=== PATIENT | female | born 1950 | race Caucasian/White ===

== ENCOUNTER 2021-06-14 13:24 | Outpatient (CLI) | payer MEDICARE | END 2021-06-14 13:25 | disposition home or self-care (01) | LOC: BICMAMMO 13:24 | PROVIDERS: ATTEND Specialist | DX: M81.0 Age-related osteoporosis without current pathological fracture (principal); M85.89 Other specified disorders of bone density and structure, multiple sites; Z85.3 Personal history of malignant neoplasm of breast | CPT/HCPCS: 77066; 77080; G0279 ==

== ENCOUNTER 2022-03-03 07:13 | Inpatient (IN) | payer MEDICARE, OTHER ==
[2022-03-03 08:52] LABS: #Basophils 0.2 thou/uL (0.0-0.2); #Lymphocytes 0.3 thou/uL (1.20-3.40); #Monocytes 0.8 thou/uL (0.11-0.59); #Neutrophils 7.3 thou/uL (1.40-6.50); %Basophils 1.9 % (0.0-1.0); %Eosinophils 0.4 % (0.0-10.0); %Lymphocytes 3.9 % (21.0-51.0); %Neutrophils 84.9 % (42.0-75.0); Hemoglobin 11.7 g/dL (12.0-16.0); Mean Corpuscular HGB CONC 34.6 g/dL (32.0-36.0); Mean Corpuscular Hemoglobin 33.1 pg (27.0-31.0); Mean Corpuscular Volume 95.8 fL (78.0-98.0); Mean Platelet Volume 9.9 fL (7.4-10.4); Platelet Count 141 thou/uL (130-400); RBC Distribution Width 11.8 % (11.5-14.5); Red Blood Cell (RBC) Count 3.53 mill/uL (4.20-5.40); White Blood Cell (WBC) Count 8.6 thou/uL (4.8-10.8)
[2022-03-03 09:11] LABS: ALT (SGPT) 11 U/L (8-55); AST (SGOT) 20 U/L (5-34); Albumin 3.7 g/dL (3.4-4.8); Alkaline Phosphatase 66 U/L (40-110); Anion Gap 15 mmol/L (10-20); BUN (Urea Nitrogen) 6 mg/dL (9.8-20.1); Bilirubin, Total 1.6 mg/dL (0.2-1.2); CK (CPK) 794 U/L (29-168); Calc. Creatinine Clearance 0 mL/min (70-130); Calcium 8.6 mg/dL (7.8-10.44); Carbon Dioxide 30 mmol/L (23-31); Chloride 97 mmol/L (98-107); Estimated GFR 92; Globulin 2.2 g/dL (2.4-3.5); Glucose 155 mg/dL (83-110); Protein, Total 5.9 g/dL (5.8-8.1); Sodium 139 mmol/L (136-145)
[2022-03-03 09:15] LABS: Potassium 2.9 mmol/L (3.5-5.1)
[2022-03-03 09:23] LABS: SARS-CoV-2 NAA Rapid Test Not Detected (NotDetected)
[2022-03-03] MEDS ORDERED: Potassium Chloride 20 MEQ TAB ONE (10:40)
[2022-03-03] MEDS ORDERED: Potassium Chloride 20 MEQ TAB PO ONE (11:40)
[2022-03-03] MEDS ORDERED: Ondansetron PF 4 MG/2 ML Vial IVP PRN (11:43)
[2022-03-03] MEDS ORDERED: Senokot S 8.6-50 MG TAB PO PRN (11:43)
[2022-03-03] MEDS ORDERED: Furosemide 20 MG/2 ML VIAL SLOW IVP SCH (12:00)
[2022-03-03] MEDS ORDERED: Albuterol Sulfate 2.5 mg/0.5 ml Neb NEB PRN (12:13)
[2022-03-03 12:15] LABS: Hemoglobin A1c 5.3 % (4.0-6.0)
[2022-03-03] MEDS ORDERED: Furosemide 20 MG/2 ML VIAL ONE (12:17)
[2022-03-03 12:23] LABS: Bilirubin Negative (Negative); Blood, Urine Negative (Negative); Clarity Clear (Clear); Glucose, Urine (Dipstick) Normal (Negative); Ketone, Urine 10 mg/dL (Negative); Leukocyte Negative Leu/uL (Negative); Nitrite Negative (Negative); Protein, Urine (Dipstick) Negative (Neg-Trace); Specific Gravity, Urine 1.005 (1.002-1.036); Urobilinogen Normal mg/dL (Less than 2)
[2022-03-03 12:25] LABS: Magnesium 1.7 mg/dL (1.6-2.6)
[2022-03-03 12:29] LABS: Troponin I 0.017 ng/mL (< 0.028)
[2022-03-03] MEDS ORDERED: HYDROcodone/Acetaminophen 10/325 mg Tablet ONE (12:42)
[2022-03-03 15:34] LABS: Potassium 3.1 mmol/L (3.5-5.1)
[2022-03-03] MEDS ORDERED: Potassium Chloride 20 MEQ TAB PO SCH (15:45)
[2022-03-03 15:46] LABS: Troponin I 0.013 ng/mL (< 0.028)
[2022-03-03] MEDS: Furosemide 20 MG/2 ML VIAL SLOW IVP SCH (15:56)
[2022-03-03 17:04] VITALS: BMI 30.6
[2022-03-03 17:27] LABS: Bilirubin Negative (Negative); Blood, Urine Negative (Negative); Clarity Clear (Clear); Glucose, Urine (Dipstick) Normal (Negative); Ketone, Urine Negative (Negative); Leukocyte Negative Leu/uL (Negative); Nitrite Negative (Negative); Protein, Urine (Dipstick) Negative (Neg-Trace); Specific Gravity, Urine 1.006 (1.002-1.036); Urobilinogen Normal mg/dL (Less than 2)
[2022-03-03 17:36] LABS: Bacteria/HPF None Seen HPF (None Seen); RBC/HPF None Seen HPF (0-3); Squamous Epithelial 0-3 HPF (0-3); Urine Culture Reflex No No; WBC/HPF 0-3 HPF (0-3)
[2022-03-03] MEDS: Acetaminophen 325 MG TAB PO PRN (18:04)
[2022-03-03] MEDS: Mirtazapine 30 MG Soltab PO SCH (20:55)
[2022-03-03] MEDS: Apixaban 5 MG TAB PO SCH (20:55)
[2022-03-03] MEDS: HYDROcodone/Acetaminophen 10/325 mg Tablet PO SCH (20:55)
[2022-03-03] MEDS ORDERED: Apixaban 5 MG TAB PO SCH (21:00)
[2022-03-04 05:37] LABS: Anion Gap 17 mmol/L (10-20); BUN (Urea Nitrogen) 6 mg/dL (9.8-20.1); CK (CPK) 570 U/L (29-168); Calc. Creatinine Clearance 94 mL/min (70-130); Carbon Dioxide 28 mmol/L (23-31); Chloride 100 mmol/L (98-107); Estimated GFR 93; Glucose 95 mg/dL (83-110); Potassium 3.4 mmol/L (3.5-5.1); Sodium 142 mmol/L (136-145)
[2022-03-04 06:36] LABS: Band 5 % (5-11); Eosinophils 3 % (0-10); Hemoglobin 12.5 g/dL (12.0-16.0); Lymphocytes 19 % (21-51); MDiff Complete? YES; Mean Corpuscular HGB CONC 33.1 g/dL (32.0-36.0); Mean Corpuscular Hemoglobin 32.7 pg (27.0-31.0); Mean Corpuscular Volume 98.8 fL (78.0-98.0); Mean Platelet Volume 9.6 fL (7.4-10.4); Monocytes 8 % (0-10); Neutrophil 65 % (42-75); Platelet Count 148 thou/uL (130-400); RBC Distribution Width 12.1 % (11.5-14.5); RBC Morphology Normal; Red Blood Cell (RBC) Count 3.83 mill/uL (4.20-5.40); White Blood Cell (WBC) Count 4.7 thou/uL (4.8-10.8)
[2022-03-04] MEDS: Acetaminophen 325 MG TAB PO PRN (06:41)
[2022-03-04] MEDS: Furosemide 20 MG/2 ML VIAL SLOW IVP SCH ×2 (06:42→15:39)
[2022-03-04] MEDS: Apixaban 5 MG TAB PO SCH ×2 (08:56→21:31)
[2022-03-04] MEDS: HYDROcodone/Acetaminophen 10/325 mg Tablet PO SCH ×3 (08:57→21:32)
[2022-03-04] MEDS: Nebivolol HCl 5 MG TAB PO SCH (08:57)
[2022-03-04] MEDS: Atorvastatin Calcium 20 MG TAB PO SCH (08:57)
[2022-03-04] MEDS: rOPINIRole HCl 1 MG TAB PO SCH (08:57)
[2022-03-04 12:57] LABS: Hemoglobin A1c 5.3 % (4.0-6.0)
[2022-03-04] MEDS: Ondansetron ODT 4 MG TAB PO PRN (13:11)
[2022-03-04] MEDS ORDERED: Potassium Chloride 20 MEQ TAB PO SCH (18:45)
[2022-03-04] MEDS: Mirtazapine 30 MG Soltab PO SCH (21:31)
[2022-03-05] MEDS: Acetaminophen 325 MG TAB PO PRN (03:17)
[2022-03-05 05:37] LABS: Hemoglobin 13.2 g/dL (12.0-16.0); Mean Corpuscular HGB CONC 34.3 g/dL (32.0-36.0); Mean Corpuscular Hemoglobin 32.8 pg (27.0-31.0); Mean Corpuscular Volume 95.7 fL (78.0-98.0); Mean Platelet Volume 8.8 fL (7.4-10.4); Platelet Count 198 thou/uL (130-400); RBC Distribution Width 12.1 % (11.5-14.5); Red Blood Cell (RBC) Count 4.02 mill/uL (4.20-5.40)
[2022-03-05 05:47] LABS: Anion Gap 15 mmol/L (10-20); BUN (Urea Nitrogen) 15 mg/dL (9.8-20.1); CK (CPK) 227 U/L (29-168); Calc. Creatinine Clearance 73 mL/min (70-130); Calcium 9.5 mg/dL (7.8-10.44); Carbon Dioxide 35 mmol/L (23-31); Cardiac Risk 4.4 (Less than 4.5); Chloride 95 mmol/L (98-107); Cholesterol 119 mg/dl (< 200 Desired); Estimated GFR 74; Glucose 130 mg/dL (83-110); HDL Cholesterol 27 mg/dL (>60 Neg Risk); LDL Cholesterol, Calculated 66 mg/dL; Sodium 142 mmol/L (136-145); Triglycerides 128 mg/dL (Less than 150)
[2022-03-05 06:27] LABS: Band 1 % (5-11); Eosinophils 3 % (0-10); Lymphocytes 20 % (21-51); MDiff Complete? YES; Monocytes 13 % (0-10); Neutrophil 62 % (42-75)
[2022-03-05] MEDS ORDERED: Gadobenate Dimeglumine 529 MG/1 ML (20ML VIAL) ONE (08:00)
[2022-03-05] MEDS: rOPINIRole HCl 1 MG TAB PO SCH (08:24)
[2022-03-05] MEDS: Furosemide 20 MG/2 ML VIAL SLOW IVP SCH ×2 (08:24→14:14)
[2022-03-05] MEDS: HYDROcodone/Acetaminophen 10/325 mg Tablet PO SCH ×3 (08:25→20:17)
[2022-03-05] MEDS: Nebivolol HCl 5 MG TAB PO SCH (08:26)
[2022-03-05] MEDS: Apixaban 5 MG TAB PO SCH ×2 (08:26→20:19)
[2022-03-05] MEDS: Atorvastatin Calcium 20 MG TAB PO SCH (08:31)
[2022-03-05] MEDS ORDERED: HYDROcodone/Acetaminophen 10/325 mg Tablet PO SCH (12:00)
[2022-03-05] MEDS: Potassium Chloride 20 MEQ TAB PO SCH (16:48)
[2022-03-05] MEDS: Melatonin 3 MG TAB PO SCH (17:52)
[2022-03-05] MEDS: Mirtazapine 30 MG Soltab PO SCH (20:19)
[2022-03-05] MEDS: Ondansetron ODT 4 MG TAB PO PRN (20:20)
[2022-03-06] MEDS: HYDROcodone/Acetaminophen 10/325 mg Tablet PO SCH ×4 (02:06→20:09)
[2022-03-06] MEDS: Ondansetron ODT 4 MG TAB PO PRN ×2 (02:07→17:02)
[2022-03-06 04:49] LABS: Anion Gap 16 mmol/L (10-20); BUN (Urea Nitrogen) 15 mg/dL (9.8-20.1); Calc. Creatinine Clearance 78 mL/min (70-130); Calcium 9.3 mg/dL (7.8-10.44); Carbon Dioxide 32 mmol/L (23-31); Chloride 96 mmol/L (98-107); Estimated GFR 81; Glucose 126 mg/dL (83-110); Potassium 3.4 mmol/L (3.5-5.1); Sodium 141 mmol/L (136-145)
[2022-03-06 05:15] LABS: Hemoglobin 13.4 g/dL (12.0-16.0); Mean Corpuscular HGB CONC 33.3 g/dL (32.0-36.0); Mean Corpuscular Hemoglobin 31.9 pg (27.0-31.0); Mean Corpuscular Volume 95.8 fL (78.0-98.0); Mean Platelet Volume 9.2 fL (7.4-10.4); Platelet Count 196 thou/uL (130-400); RBC Distribution Width 12.1 % (11.5-14.5); White Blood Cell (WBC) Count 5.7 thou/uL (4.8-10.8)
[2022-03-06 05:16] LABS: Band 1 % (5-11); Eosinophils 4 % (0-10); Lymphocytes 28 % (21-51); MDiff Complete? YES; Monocytes 12 % (0-10); Neutrophil 53 % (42-75)
[2022-03-06] MEDS: Furosemide 20 MG/2 ML VIAL SLOW IVP SCH ×2 (06:34→13:43)
[2022-03-06] MEDS: Atorvastatin Calcium 20 MG TAB PO SCH (08:00)
[2022-03-06] MEDS: rOPINIRole HCl 1 MG TAB PO SCH (08:01)
[2022-03-06] MEDS: Potassium Chloride 20 MEQ TAB PO SCH ×2 (08:02→16:05)
[2022-03-06] MEDS: Nebivolol HCl 5 MG TAB PO SCH (08:02)
[2022-03-06] MEDS: Apixaban 5 MG TAB PO SCH ×2 (08:08→20:10)
[2022-03-06] MEDS: Acetaminophen 325 MG TAB PO PRN ×2 (11:22→17:03)
[2022-03-06] MEDS: Melatonin 3 MG TAB PO SCH (20:09)
[2022-03-06] MEDS: Mirtazapine 30 MG Soltab PO SCH (20:11)
[2022-03-07] MEDS: HYDROcodone/Acetaminophen 10/325 mg Tablet PO SCH ×2 (02:10→08:09)
[2022-03-07] MEDS: Ondansetron ODT 4 MG TAB PO PRN (02:11)
[2022-03-07 05:57] LABS: Anion Gap 16 mmol/L (10-20); BUN (Urea Nitrogen) 20 mg/dL (9.8-20.1); CK (CPK) 47 U/L (29-168); Calc. Creatinine Clearance 63 mL/min (70-130); Calcium 10.1 mg/dL (7.8-10.44); Carbon Dioxide 33 mmol/L (23-31); Chloride 96 mmol/L (98-107); Estimated GFR 76; Glucose 131 mg/dL (83-110); Potassium 3.2 mmol/L (3.5-5.1); Sodium 142 mmol/L (136-145)
[2022-03-07] MEDS: Furosemide 20 MG/2 ML VIAL SLOW IVP SCH (06:01)
[2022-03-07] MEDS: Acetaminophen 325 MG TAB PO PRN (06:02)
[2022-03-07] MEDS: Nebivolol HCl 5 MG TAB PO SCH (08:10)
[2022-03-07] MEDS: Atorvastatin Calcium 20 MG TAB PO SCH (08:10)
[2022-03-07] MEDS: rOPINIRole HCl 1 MG TAB PO SCH (08:10)
[2022-03-07] MEDS: Apixaban 5 MG TAB PO SCH (08:10)
[2022-03-07] MEDS: Potassium Chloride 20 MEQ TAB PO SCH (08:10)
[2022-03-07 08:20] VITALS: BP 111/62; TEMP 98.5
== END 2022-03-07 10:32 | disposition home or self-care (01) | DRG 291 ==
LOC: ERS 07:13 → 2SW 11:32 → OBSVTOIN 03-05 15:21
PROVIDERS: ADMIT Hospitalist; ATTEND Internal Medicine
DX: I11.0 Hypertensive heart disease with heart failure (principal); J96.01 Acute respiratory failure with hypoxia; I50.33 Acute on chronic diastolic (congestive) heart failure; I48.20 Chronic atrial fibrillation, unspecified; Z20.822 Contact with and (suspected) exposure to COVID-19; E78.5 Hyperlipidemia, unspecified; C50.912 Malignant neoplasm of unspecified site of left female breast; F03.90 Unspecified dementia, unspecified severity, without behavioral disturbance, psychotic disturbance, mood disturbance, and anxiety; E87.6 Hypokalemia; E11.65 Type 2 diabetes mellitus with hyperglycemia; D64.9 Anemia, unspecified; R29.6 Repeated falls; F32.A Depression, unspecified; F41.9 Anxiety disorder, unspecified; E86.0 Dehydration; T79.6XXA Traumatic ischemia of muscle, initial encounter; W18.30XA Fall on same level, unspecified, initial encounter; Z79.01 Long term (current) use of anticoagulants; Z86.73 Personal history of transient ischemic attack (TIA), and cerebral infarction without residual deficits; Z88.5 Allergy status to narcotic agent; Z88.0 Allergy status to penicillin; Z88.2 Allergy status to sulfonamides; Z88.8 Allergy status to other drugs, medicaments and biological substances; Z79.899 Other long term (current) drug therapy; Z90.49 Acquired absence of other specified parts of digestive tract; Z90.710 Acquired absence of both cervix and uterus
CPT/HCPCS: 36415; 70450; 70551; 71045; 72050; 72141; 80048; 80053; 80061; 81003; 82550; 83036; 83605; 83735; 83880; 84443; 84484; 85025; 87040; 87086; 93005; 93306; 94760; 96361; 96374; 96375; 96376; 97139; A9577; G0378; J1940; J2405; Q0162

== ENCOUNTER 2022-10-26 10:51 | Observation (INO) | payer MEDICARE, OTHER ==
[2022-10-26 11:30] LABS: #Eosinphils 0.1 thou/uL (0.0-0.7); #Lymphocytes 0.5 thou/uL (1.20-3.40); #Monocytes 0.5 thou/uL (0.11-0.59); #Neutrophils 4.2 thou/uL (1.40-6.50); %Eosinophils 1.6 % (0.0-10.0); %Lymphocytes 9.5 % (21.0-51.0); %Monocytes 9.8 % (0.0-10.0); %Neutrophils 79.1 % (42.0-75.0); Hemoglobin 11.5 g/dL (12.0-16.0); Mean Corpuscular HGB CONC 32.5 g/dL (32.0-36.0); Mean Platelet Volume 8.8 fL (7.4-10.4); Platelet Count 175 10x3/uL (130-400); RBC Distribution Width 13.8 % (11.5-14.5); Red Blood Cell (RBC) Count 3.49 mill/uL (4.20-5.40); White Blood Cell (WBC) Count 5.3 10x3/uL (4.8-10.8)
[2022-10-26 11:39] LABS: Chloride 103 mmol/L (98-107); Potassium 3.6 mmol/L (3.5-5.1); Sodium 143 mmol/L (136-145)
[2022-10-26 11:40] LABS: Calcium 8.9 mg/dL (7.8-10.44)
[2022-10-26 11:41] LABS: Globulin 2.2 g/dL (2.4-3.5); Glucose 105 mg/dL (83-110); Protein, Total 6.2 g/dL (5.8-8.1)
[2022-10-26 11:42] LABS: Anion Gap 13 mmol/L (10-20); Bilirubin, Total 1.2 mg/dL (0.2-1.2); Carbon Dioxide 31 mmol/L (23-31)
[2022-10-26 11:43] LABS: Alkaline Phosphatase 61 U/L (40-110)
[2022-10-26 11:44] LABS: Calc. Creatinine Clearance 0 mL/min (70-130); Estimated GFR 79; INR-International Normal Ratio 1.3; PTT 28.5 sec (22.9-36.1); Prothrombin Time 16.9 sec (12.0-14.7)
[2022-10-26 11:45] LABS: BUN (Urea Nitrogen) 12 mg/dL (9.8-20.1)
[2022-10-26 11:46] LABS: ALT (SGPT) 8 U/L (8-55); AST (SGOT) 12 U/L (5-34)
[2022-10-26 11:47] LABS: Lipase 17 U/L (8-78)
[2022-10-26] MEDS ORDERED: Ondansetron PF 4 MG/2 ML Vial IVP PRN (13:25)
[2022-10-26] MEDS ORDERED: Calcium Carbonate 500 MG ChewTAB PO PRN (13:25)
[2022-10-26] MEDS ORDERED: Senokot S 8.6-50 MG TAB PO PRN (13:25)
[2022-10-26] MEDS ORDERED: HYDROcodone/Acetaminophen 5/325 mg Tablet PO PRN (14:31)
[2022-10-26] MEDS ORDERED: Mag-Al Plus 1200 MG/1200 MG/120 MG/30 ML UDCUP PO PRN (14:33)
[2022-10-26 14:42] VITALS: BMI 27.5
[2022-10-26 15:07] LABS: Troponin I 0.011 ng/mL (< 0.028)
[2022-10-26] MEDS ORDERED: Benzonatate 100 MG CAP PO PRN (15:08)
[2022-10-26 15:59] LABS: SARS-CoV-2 NAA Rapid Test Not Detected (NotDetected)
[2022-10-26 17:58] LABS: Troponin I Less than 0.010 ng/mL (< 0.028)
[2022-10-26] MEDS ORDERED: Mirtazapine 30 MG Soltab PO SCH (21:00)
[2022-10-26] MEDS: Apixaban 5 MG TAB PO SCH (21:59)
[2022-10-26] MEDS: Mirtazapine 15 MG Soltab PO SCH (21:59)
[2022-10-26] MEDS: rOPINIRole HCl 2 MG TAB PO SCH (22:00)
[2022-10-26] MEDS: Acetaminophen 325 MG TAB PO PRN (22:02)
[2022-10-27 05:23] LABS: #Eosinphils 0.1 thou/uL (0.0-0.7); #Lymphocytes 0.4 thou/uL (1.20-3.40); #Monocytes 0.4 thou/uL (0.11-0.59); %Eosinophils 2.9 % (0.0-10.0); %Lymphocytes 10.2 % (21.0-51.0); %Monocytes 10.2 % (0.0-10.0); %Neutrophils 76.7 % (42.0-75.0); Hemoglobin 10.7 g/dL (12.0-16.0); Mean Corpuscular HGB CONC 32.7 g/dL (32.0-36.0); Mean Corpuscular Hemoglobin 32.9 pg (27.0-31.0); Mean Platelet Volume 8.9 fL (7.4-10.4); Platelet Count 163 10x3/uL (130-400); RBC Distribution Width 13.4 % (11.5-14.5); Red Blood Cell (RBC) Count 3.26 mill/uL (4.20-5.40)
[2022-10-27 05:42] LABS: Hemoglobin A1c 4.8 % (4.0-6.0)
[2022-10-27 05:54] LABS: ALT (SGPT) 9 U/L (8-55); AST (SGOT) 21 U/L (5-34); Albumin 3.4 g/dL (3.4-4.8); Alkaline Phosphatase 53 U/L (40-110); Anion Gap 14 mmol/L (10-20); BUN (Urea Nitrogen) 11 mg/dL (9.8-20.1); Bilirubin, Total 1.1 mg/dL (0.2-1.2); Calc. Creatinine Clearance 90 mL/min (70-130); Calcium 8.5 mg/dL (7.8-10.44); Carbon Dioxide 29 mmol/L (23-31); Cardiac Risk 2.3 (Less than 4.5); Chloride 102 mmol/L (98-107); Cholesterol 106 mg/dl (< 200 Desired); Estimated GFR 93; Globulin 2.5 g/dL (2.4-3.5); Glucose 107 mg/dL (83-110); HDL Cholesterol 47 mg/dL (>60 Neg Risk); Potassium 3.6 mmol/L (3.5-5.1); Protein, Total 5.9 g/dL (5.8-8.1); Sodium 141 mmol/L (136-145)
[2022-10-27] MEDS: Acetaminophen 325 MG TAB PO PRN ×2 (06:06→20:25)
[2022-10-27 06:16] LABS: Triglycerides 123 mg/dL (Less than 150)
[2022-10-27 06:24] LABS: LDL Cholesterol, Calculated 34 mg/dL
[2022-10-27] MEDS ORDERED: Potassium Chloride 20 MEQ TAB PO SCH (08:00)
[2022-10-27] MEDS: Apixaban 5 MG TAB PO SCH ×2 (08:13→20:27)
[2022-10-27] MEDS: Atorvastatin Calcium 20 MG TAB PO SCH (08:13)
[2022-10-27] MEDS: Furosemide 20 MG TAB PO SCH (08:13)
[2022-10-27] MEDS: Aspirin 81 mg Enteric Coated Tablet PO SCH (08:13)
[2022-10-27] MEDS ORDERED: Nebivolol HCl 5 MG TAB PO SCH (09:00)
[2022-10-27] MEDS ORDERED: Furosemide 20 MG/2 ML VIAL SLOW IVP SCH (14:00)
[2022-10-27] MEDS: Mirtazapine 15 MG Soltab PO SCH (20:26)
[2022-10-27] MEDS: rOPINIRole HCl 2 MG TAB PO SCH (20:26)
[2022-10-27] MEDS ORDERED: diphenhydrAMINE 50 MG CAP PO SCH (21:00)
[2022-10-28 05:22] LABS: Anion Gap 10 mmol/L (10-20); BUN (Urea Nitrogen) 11 mg/dL (9.8-20.1); Calc. Creatinine Clearance 82 mL/min (70-130); Calcium 8.8 mg/dL (7.8-10.44); Carbon Dioxide 33 mmol/L (23-31); Chloride 100 mmol/L (98-107); Estimated GFR 91; Glucose 104 mg/dL (83-110); Magnesium 1.9 mg/dL (1.6-2.6); Potassium 3.5 mmol/L (3.5-5.1); Sodium 139 mmol/L (136-145)
[2022-10-28] MEDS ORDERED: Regadenoson 0.4 MG/5 ML SYRINGE ONE (08:23)
[2022-10-28] MEDS ORDERED: Potassium Chloride 20 MEQ TAB PO SCH (08:45)
[2022-10-28] MEDS: Atorvastatin Calcium 20 MG TAB PO SCH (09:05)
[2022-10-28] MEDS: Aspirin 81 mg Enteric Coated Tablet PO SCH (09:05)
[2022-10-28] MEDS: Furosemide 20 MG TAB PO SCH (09:05)
[2022-10-28] MEDS: Apixaban 5 MG TAB PO SCH (09:10)
[2022-10-28 09:19] VITALS: BP 136/67; TEMP 97.9
[2022-10-28] MEDS: Acetaminophen 325 MG TAB PO PRN (11:05)
== END 2022-10-28 12:03 | disposition home or self-care (01) ==
LOC: SUATTDRO 10:51 → ERS 10:51 → 2SW 12:46
PROVIDERS: ADMIT Internal Medicine; ATTEND Internal Medicine
DX: R06.09 Other forms of dyspnea (principal); R07.89 Other chest pain; I48.91 Unspecified atrial fibrillation; R10.11 Right upper quadrant pain; I11.0 Hypertensive heart disease with heart failure; I50.9 Heart failure, unspecified; E78.5 Hyperlipidemia, unspecified; F12.10 Cannabis abuse, uncomplicated; Z85.3 Personal history of malignant neoplasm of breast; Z85.42 Personal history of malignant neoplasm of other parts of uterus; Z86.73 Personal history of transient ischemic attack (TIA), and cerebral infarction without residual deficits; Z79.01 Long term (current) use of anticoagulants; Z79.899 Other long term (current) drug therapy; Z88.0 Allergy status to penicillin; Z88.2 Allergy status to sulfonamides; Z88.5 Allergy status to narcotic agent; Z88.6 Allergy status to analgesic agent; Z20.822 Contact with and (suspected) exposure to COVID-19
CPT/HCPCS: 36415; 71045; 76705; 78452; 80048; 80053; 80061; 83036; 83690; 83735; 83880; 84484; 85025; 85610; 85730; 93005; 93017; 96374; A9500; G0378; J1940; J2785; U0002

== ENCOUNTER 2023-01-09 21:08 | Emergency (ER) | payer OTHER ==
[2023-01-09] MEDS ORDERED: Ondansetron ODT 4 MG TAB ONE (21:23)
[2023-01-09 21:57] LABS: #Monocytes 0.4 thou/uL (0.11-0.59); #Neutrophils 4.7 thou/uL (1.40-6.50); %Basophils 0.8 % (0.0-1.0); %Eosinophils 0.2 % (0.0-10.0); %Lymphocytes 3.8 % (21.0-51.0); %Neutrophils 87.8 % (42.0-75.0); Hemoglobin 11.1 g/dL (12.0-16.0); Mean Corpuscular Hemoglobin 29.7 pg (27.0-31.0); Mean Corpuscular Volume 92.8 fl (78.0-98.0); Platelet Count 265 10x3/uL (130-400); RBC Distribution Width 14.6 % (11.5-14.5); Red Blood Cell (RBC) Count 3.74 mill/uL (4.20-5.40); White Blood Cell (WBC) Count 5.3 10x3/uL (4.8-10.8)
[2023-01-09 22:24] LABS: ALT (SGPT) 12 U/L (8-55); AST (SGOT) 15 U/L (5-34); Albumin 3.9 g/dL (3.4-4.8); Alkaline Phosphatase 91 U/L (40-110); Anion Gap 19 mmol/L (10-20); BUN (Urea Nitrogen) 9 mg/dL (9.8-20.1); Bilirubin, Total 0.8 mg/dL (0.2-1.2); Calc. Creatinine Clearance 0 mL/min (70-130); Calcium 8.7 mg/dL (7.8-10.44); Carbon Dioxide 22 mmol/L (23-31); Chloride 97 mmol/L (98-107); Estimated GFR 73; Globulin 2.5 g/dL (2.4-3.5); Glucose 179 mg/dL (83-110); Protein, Total 6.4 g/dL (5.8-8.1); Sodium 135 mmol/L (136-145)
[2023-01-09 22:41] LABS: Potassium 2.5 mmol/L (3.5-5.1)
[2023-01-09] MEDS ORDERED: Potassium Chloride 20 MEQ TAB ONE (23:38)
[2023-01-10 00:06] LABS: Bilirubin Negative (Negative); Blood, Urine Negative (Negative); Clarity Clear (Clear); Glucose, Urine (Dipstick) Normal (Negative); Ketone, Urine 20 mg/dL (Negative); Leukocyte Negative Leu/uL (Negative); Nitrite Negative (Negative); Protein, Urine (Dipstick) Negative (Neg-Trace); Specific Gravity, Urine 1.015 (1.002-1.036); Urobilinogen Normal mg/dL (Less than 2)
[2023-01-10] MEDS ORDERED: Ondansetron ODT 4 MG TAB ONE (00:08)
[2023-01-10] MEDS ORDERED: Ondansetron PF 4 MG/2 ML Vial ONE (00:08)
== END 2023-01-10 00:24 | disposition home or self-care (01) ==
LOC: ERS 21:08
DX: R06.02 Shortness of breath (principal); F43.0 Acute stress reaction; Z87.891 Personal history of nicotine dependence; Z79.01 Long term (current) use of anticoagulants; Z79.899 Other long term (current) drug therapy
CPT/HCPCS: 71045; 80053; 81003; 84484; 85025; 87086; 93005; 94760; J2405; Q0162

== ENCOUNTER 2023-01-10 03:15 | Inpatient (IN) | payer MEDICARE, OTHER ==
[2023-01-10] MEDS ORDERED: Tenecteplase 50 MG ONE (03:17)
[2023-01-10] MEDS ORDERED: EPINEPHrine 1 MG/10 ML Abboject SYRINGE ONE ×2 (03:17→05:55)
[2023-01-10] MEDS ORDERED: Calcium Chloride 1 GM/10 ML Abboject SYRINGE ONE (03:17)
[2023-01-10] MEDS ORDERED: Sodium Bicarb 50 MEQ/50 ML Abboject 8.4% SYRINGE ONE ×2 (03:17→05:55)
[2023-01-10] MEDS ORDERED: NOREPINEPHRINE 8 MG/250 ML-D5W 250 ML ONE (03:36)
[2023-01-10] MEDS ORDERED: Magnesium 2 GM/50 ML BAG (IN WATER) ONE (03:58)
[2023-01-10] MEDS ORDERED: Procainamide 2,000 MG in Sodium Chloride 0.9% 500 ML IVPB SCH (04:00)
[2023-01-10 04:01] LABS: Analyzer IN Cardio ER; Base Excess (BEa) -14.6 mEq/L (-2.0 to +3.0); Calcium, Ionized (arterial) 1.35 mmol/L (1.12-1.30); Hematocrit-ABG 36 % (36.0-47.0); Hemoglobin (Hb) 12.4 g/dL (12.0-16.0); Potassium - ABG Lab 3.37 mmol/L (3.70-5.30); pH, Arterial 7.131 (7.35-7.45)
[2023-01-10 04:02] LABS: Puncture Site LFA
[2023-01-10 04:16] LABS: Hemoglobin 11.3 g/dL (12.0-16.0); Mean Corpuscular HGB CONC 28.7 g/dL (32.0-36.0); Mean Corpuscular Hemoglobin 30.2 pg (27.0-31.0); Mean Platelet Volume 11.3 fL (7.4-10.4); Platelet Count 259 10x3/uL (130-400); Red Blood Cell (RBC) Count 3.74 mill/uL (4.20-5.40); White Blood Cell (WBC) Count 6.5 10x3/uL (4.8-10.8)
[2023-01-10 04:22] LABS: Delete Auto Diff?? YES; Manual Diff?? YES; Mean Corpuscular Volume 105.3 fl (78.0-98.0)
[2023-01-10 04:58] LABS: Anisocytosis SLIGHT = 6-15 cells HPF (0-5); Band 4 % (5-11); Burr Cells SLIGHT = 2-5 cells HPF (0-1); Hypochromia SLIGHT = 6-15 cells HPF (0-5); Large Platelets 3.1 % (0-5); Lymphocytes 5 % (21-51); Macrocytosis SLIGHT = 6-15 cells HPF (0-5); Metamyelocyte 2 % (0-0); Monocytes 6 % (0-10); Myelocyte 2 % (0-0); Neutrophil 81 % (42-75); Ovalocytes SLIGHT = 2-5 cells HPF (0-1); Platelet Morphology Comment Platelets Normal; Polychromasia SLIGHT = 2-3 cells HPF (0-2); Target Cells SLIGHT = 2-5 cells HPF (0-1); Tear Drops SLIGHT = 2-5 cells HPF (0-1); Total Cell Count 98
[2023-01-10] MEDS ORDERED: Ondansetron PF 4 MG/2 ML Vial IVP PRN (05:00)
[2023-01-10] MEDS ORDERED: Acetaminophen 650 MG Suppository PR PRN (05:00)
[2023-01-10] MEDS ORDERED: Electrolyte Replacement Protocol 1 EACH IVPB PRN (05:02)
[2023-01-10] MEDS ORDERED: NOREPINEPHRINE 8 MG/250 ML-D5W 250 ML IVPB PRN (05:02)
[2023-01-10 05:28] LABS: ALT (SGPT) 24 U/L (8-55); AST (SGOT) 54 U/L (5-34); Albumin 3.5 g/dL (3.4-4.8); Alkaline Phosphatase 97 U/L (40-110); Anion Gap 27 mmol/L (10-20); BUN (Urea Nitrogen) 9 mg/dL (9.8-20.1); Bilirubin, Total 0.7 mg/dL (0.2-1.2); Calc. Creatinine Clearance 0 mL/min (70-130); Calcium 8.3 mg/dL (7.8-10.44); Carbon Dioxide 11 mmol/L (23-31); Chloride 101 mmol/L (98-107); Estimated GFR 69; Globulin 2.2 g/dL (2.4-3.5); Glucose 262 mg/dL (83-110); Potassium 3.8 mmol/L (3.5-5.1); Protein, Total 5.7 g/dL (5.8-8.1); Sodium 135 mmol/L (136-145)
[2023-01-10 05:37] VITALS: BP 82/51
[2023-01-10] MEDS ORDERED: Sodium Bicarb 50 MEQ/50 ML VIAL ONE (05:50)
[2023-01-10 06:12] VITALS: BMI 26.6
[2023-01-10] MEDS ORDERED: Amiodarone 450 MG in Dextrose 5% in Water 250 ML IVPB SCH (06:15)
[2023-01-10] MEDS ORDERED: Sodium Bicarbonate 150 MEQ in Dextrose 5% in Water 1,000 ML IV SCH (06:15)
[2023-01-10 07:04] VITALS: TEMP 98.2
[2023-01-10] MEDS ORDERED: Magnesium 2 GM/50 ML(in water) 2 GM in Premix Bag 1 BAG IVPB SCH (08:00)
[2023-01-10] MEDS ORDERED: Pantoprazole 40 MG VIAL IVP SCH (09:00)
== END 2023-01-10 09:52 | disposition expired | DRG 208 ==
LOC: ERS 03:15 → CCU 04:27
PROVIDERS: ADMIT Student in an Organized Health Care Education/Training Program; ATTEND Student in an Organized Health Care Education/Training Program
PROC: 3E03317 Introduction of Other Thrombolytic into Peripheral Vein, Percutaneous Approach (ICD-10-PCS; principal; 2023-01-10)
PROC: 5A1935Z Respiratory Ventilation, Less than 24 Consecutive Hours (ICD-10-PCS; 2023-01-10)
PROC: 3E033XZ Introduction of Vasopressor into Peripheral Vein, Percutaneous Approach (ICD-10-PCS; 2023-01-10)
PROC: 5A2204Z Restoration of Cardiac Rhythm, Single (ICD-10-PCS; 2023-01-10)
PROC: 0D9670Z Drainage of Stomach with Drainage Device, Via Natural or Artificial Opening (ICD-10-PCS; 2023-01-10)
PROC: 5A12012 Performance of Cardiac Output, Single, Manual (ICD-10-PCS; 2023-01-10)
DX: I26.99 Other pulmonary embolism without acute cor pulmonale (principal); I21.9 Acute myocardial infarction, unspecified; J96.01 Acute respiratory failure with hypoxia; J81.0 Acute pulmonary edema; I47.20 Ventricular tachycardia, unspecified; G93.1 Anoxic brain damage, not elsewhere classified; J95.88 Other intraoperative complications of respiratory system, not elsewhere classified; E87.20 Acidosis, unspecified; Z66 Do not resuscitate; E78.5 Hyperlipidemia, unspecified; G89.29 Other chronic pain; F41.9 Anxiety disorder, unspecified; G43.909 Migraine, unspecified, not intractable, without status migrainosus; G47.00 Insomnia, unspecified; R57.8 Other shock; I49.01 Ventricular fibrillation; D64.9 Anemia, unspecified; I48.91 Unspecified atrial fibrillation; I46.2 Cardiac arrest due to underlying cardiac condition; I46.8 Cardiac arrest due to other underlying condition; Y84.8 Other medical procedures as the cause of abnormal reaction of the patient, or of later complication, without mention of misadventure at the time of the procedure; F43.0 Acute stress reaction; Z79.01 Long term (current) use of anticoagulants; Z90.49 Acquired absence of other specified parts of digestive tract; Z90.710 Acquired absence of both cervix and uterus; Z85.42 Personal history of malignant neoplasm of other parts of uterus; Z92.21 Personal history of antineoplastic chemotherapy; Z88.6 Allergy status to analgesic agent; Z88.4 Allergy status to anesthetic agent; Z88.5 Allergy status to narcotic agent; Z88.0 Allergy status to penicillin; Z88.2 Allergy status to sulfonamides; Z88.8 Allergy status to other drugs, medicaments and biological substances; Z79.899 Other long term (current) drug therapy; Z92.3 Personal history of irradiation; Z87.891 Personal history of nicotine dependence; Z78.1 Physical restraint status; Z85.3 Personal history of malignant neoplasm of breast; Z85.50 Personal history of malignant neoplasm of unspecified urinary tract organ; Z86.73 Personal history of transient ischemic attack (TIA), and cerebral infarction without residual deficits
CPT/HCPCS: 71045; 80053; 81003; 82805; 83735; 84484; 85025; 87086; 93005; 94002; 94760; J0171; J0282; J2405; J2690; J3101; J3475; J7030; J7070; Q0162